=== PATIENT | female | born 1995 | race African-American/Black ===

== ENCOUNTER 2025-05-19 21:25 | Emergency (ER) | payer OTHER ==
[~2025-05-19] VITALS: Ht 157.5 cm; Wt 70.5 kg
[2025-05-19 22:11] LABS: COVID AG,FIA SOURCE NASAL SWAB
[2025-05-19 22:35] LABS: SARS-COV2 (COVID) ANTIGEN,FIA Negative (Negative)
[2025-05-19 22:39] VITALS: BP 119/78; PULSE 79; RESP 16; TEMP 98; O2SAT 100
== END 2025-05-19 22:42 | disposition home or self-care (01) ==
LOC: EMS 21:28
DX: Z11.52 Encounter for screening for COVID-19 (principal); Z88.5 Allergy status to narcotic agent; Z20.822 Contact with and (suspected) exposure to COVID-19
CPT/HCPCS: 99283